=== PATIENT | female | born 1955 ===

== ENCOUNTER → 2020-09-07 | Outpatient (CLI) | payer BC ==
[~2020-09-07] VITALS: Ht 152.4 cm; Wt 62.6 kg
[~2020-09-07] MED LIST: BENICAR40 MG PO; CALCIUM500 MG PO; EYE MULTIVITAM1 EACH PO; FIBER GUMMIES1 EACH PO; IBUPROFEN200 M1 PO; METFORMIN HCL500 M3 PO; SUPER THERAVIT1 EACH PO; TOPROL XL25 MG PO; VITAMIN C100 MG PO; ZETIA10 MG PO
[2020-09-07 14:50] VITALS: BP 147/96
--- NOTE | 2020-09-07 16:03 | NUR ---
[facility] Assessment: 1. History of Osteoarthritis: NECK History of Rheumatoid Arthritis: NO 2. Height: 5 ft. 0 in. 152.4 cm. Weight: 138.0 lb. oz. 62.596 kg. Patient's BMI: 27.0 3. Vital Signs: BP: 147/96 Pulse: 89 Resp: 14 Temp: 02 Sat: 98 ECG Mon: 4. Pain Intensity: 0 5. Fall Risk: Dizziness: N Needs help standing or walking: N Fallen in the last 3 months: N Fall risk comments: 6. Patient on Blood Thinner: None 7. History of Hypertension: Y 8. Opioid Therapy greater than 6 weeks: Opiate Contract Signed: 9. Risk Assessment Tool Provided: 10. Functional Assessment Tool: 11. Recreational Drug Use: Unknown Drug Type: Tobacco Use: Never Smoker Tobacco Type: Amount or Packs/day: How Many Years: Alcohol Use: No Frequency: Quant:
== END ==
LOC: PAIN 06:49
PROVIDERS: ATTEND Anesthesiology Pain Medicine
DX: M54.12 Radiculopathy, cervical region (principal); Z79.899 Other long term (current) drug therapy; Z88.0 Allergy status to penicillin; Z79.891 Long term (current) use of opiate analgesic